=== PATIENT | male | born 1950 | race Caucasian/White ===

== ENCOUNTER 2023-01-27 18:29 | Inpatient (IN) | payer BC, OTHER ==
[2023-01-27] MEDS ORDERED: morphine CARPU-JECT 4 MG/1 ML DISP.SYRIN IVPUSH ONE (18:45)
[2023-01-27] MEDS ORDERED: morphine SULFATE 4 MG/ML VIAL ONE (18:49)
[2023-01-27 19:31] LABS: INR 1.04 (0.83-1.09)
[2023-01-27 19:38] LABS: BILIRUBIN,TOTAL 0.6 mg/dl (0.2-1); CALCIUM 9.1 mg/dl (8.5-10); CREATININE 1.3 mg/dl (0.55-1.3); POTASSIUM 4.4 mmol/L (3.5-5.1); TOT PROT 6.9 g/dl (6.4-8.2)
[2023-01-27] MEDS ORDERED: HYDROmorphone HCl 2 MG/ML VIAL IVPB ONE (20:22)
[2023-01-27] MEDS ORDERED: HYDROmorphone HCl 2 MG/ML VIAL ONE (20:25)
[2023-01-27 21:08] LABS: HEMATOCRIT 42.8 % (35.4-49); HEMOGLOBIN 14.2 GM/dL (11.7-16.9); MCH 29.2 pg (25.7-33.7); MCHC 33.2 g/dl (32.0-35.9); MEAN CELL VOLUME 88.1 fl (80-96); MEAN PLT VOLUME 8.2 fl (7.5-11.1); PLATELET COUNT 317 10^3/uL (134-434); RBC 4.86 M/mm3 (4.00-5.60); RDW 13.4 % (11.9-15.9); WHITE BLOOD COUNT 10.8 K/mm3 (4.0-10.0)
[2023-01-27 22:12] LABS: ANISOCYTOSIS 0; MACROCYTOSIS 0
[2023-01-28] MEDS ORDERED: ACETAMINOPHEN 325 MG TABLET (FP) PO PRN (00:03)
[2023-01-28] MEDS ORDERED: DOCUSATE SODIUM 100 MG CAPSULE (FP) PO PRN (00:08)
[2023-01-28] MEDS ORDERED: DEXTROSE 5%-NORMAL SALINE 1,000 ML IV SCH (00:15)
[2023-01-28] MEDS: ACETAMINOPHEN 1000 MG/100 ML BAG IVPB PRN ×3 (00:39→23:21)
[2023-01-28] MEDS: oxyCODONE HCL 5 MG TABLET PO PRN ×5 (00:44→23:22)
[2023-01-28 01:16] VITALS: BMI 26.0
[2023-01-28 08:28] LABS: CALCIUM 8.2 mg/dl (8.5-10); POTASSIUM 4.2 mmol/L (3.5-5.1)
[2023-01-28] MEDS ORDERED: ONDANSETRON 4 MG/2 ML VIAL IVPUSH PRN (11:58)
[2023-01-29] MEDS: oxyCODONE HCL 5 MG TABLET PO PRN ×2 (06:32→11:38)
[2023-01-29] MEDS: IBUPROFEN 600 MG TABLET (FP) PO SCH ×3 (07:49→19:40)
[2023-01-29] MEDS: ACETAMINOPHEN 500 MG TABLET (FP) PO SCH ×3 (07:50→20:22)
[2023-01-29 08:49] LABS: CALCIUM 8.1 mg/dl (8.5-10); MAGNESIUM 1.9 mg/dL (1.8-2.4); PHOSPHOROUS 2.1 mg/dl (2.5-4.9); POTASSIUM 4.2 mmol/L (3.5-5.1)
[2023-01-29 09:50] LABS: HEMATOCRIT 34.4 % (35.4-49); MCH 30.3 pg (25.7-33.7); MCHC 34.8 g/dl (32.0-35.9); MEAN PLT VOLUME 8.1 fl (7.5-11.1); PLATELET COUNT 221 10^3/uL (134-434); RBC 3.95 M/mm3 (4.00-5.60); RDW 13.3 % (11.9-15.9); WHITE BLOOD COUNT 7.5 K/mm3 (4.0-10.0)
[2023-01-29] MEDS ORDERED: ENOXAPARIN NA (PORCINE) 40 MG/0.4 ML DISP.SYRIN SQ ONE (10:00)
[2023-01-29] MEDS: POLYETHYLENE GLYCOL (HEALTHYLAX) 3350 17 GM PACKET PO SCH (10:11)
[2023-01-29] MEDS: predniSONE 5 MG TABLET (UD) PO SCH (10:11)
[2023-01-30] MEDS: IBUPROFEN 600 MG TABLET (FP) PO SCH (01:21)
[2023-01-30] MEDS: ACETAMINOPHEN 500 MG TABLET (FP) PO SCH ×5 (02:05→21:19)
[2023-01-30 08:07] LABS: CALCIUM 8.3 mg/dl (8.5-10); CREATININE 0.9 mg/dl (0.55-1.3); POTASSIUM 4.1 mmol/L (3.5-5.1)
[2023-01-30 08:10] LABS: INR 1.14 (0.83-1.09); PROTHROMBIN TIME (PATIENT) 13.1 SEC (9.7-13.0)
[2023-01-30 09:08] LABS: BASO % 0.6 % (0-2.0); EOS % 3.5 % (0-4.5); HEMATOCRIT 36.7 % (35.4-49); HEMOGLOBIN 12.9 GM/dL (11.7-16.9); LYMPH % 33.9 % (8-40); MCH 30.3 pg (25.7-33.7); MCHC 35.2 g/dl (32.0-35.9); MEAN CELL VOLUME 86.3 fl (80-96); MEAN PLT VOLUME 8.4 fl (7.5-11.1); MONO % 8.6 % (3.8-10.2); NEUT % 53.4 % (42.8-82.8); PLATELET COUNT 250 10^3/uL (134-434); RBC 4.26 M/mm3 (4.00-5.60); RDW 12.8 % (11.9-15.9); WHITE BLOOD COUNT 6.7 K/mm3 (4.0-10.0)
[2023-01-30] MEDS: predniSONE 5 MG TABLET (UD) PO SCH (09:49)
[2023-01-30] MEDS: POLYETHYLENE GLYCOL (HEALTHYLAX) 3350 17 GM PACKET PO SCH (09:52)
[2023-01-30] MEDS ORDERED: BUPIVACAINE HCL/PF 0.5% (5 MG/ML) 30 ML VIAL IJ ONE (12:04)
[2023-01-30] MEDS ORDERED: MIDAZOLAM HCL 2 MG/2 ML SINGLE DOSE VIAL ONE ×3 (12:04→14:07)
[2023-01-30] MEDS ORDERED: BUPIVACAINE LIPOSOME/PF (EXPAREL) 266 MG/20 ML VIAL ONE (12:06)
[2023-01-30] MEDS ORDERED: PROPOFOL 40 ML ONE (12:48)
[2023-01-30] MEDS ORDERED: PROPOFOL 20 ML ONE ×2 (14:14→15:00)
[2023-01-30] MEDS ORDERED: DEXAMETHASONE SOD PHOSPHATE 4 MG/1 ML VIAL ONE (15:29)
[2023-01-30] MEDS ORDERED: TRANEXAMIC ACID 1000 MG/10 ML VIAL ONE (15:29)
[2023-01-30] MEDS ORDERED: ceFAZolin SODIUM 1 GM VIAL ONE (15:29)
[2023-01-30] MEDS ORDERED: KETOROLAC TROMETHAMINE 30 MG/1 ML VIAL ONE (15:29)
[2023-01-30] MEDS ORDERED: ONDANSETRON 4 MG/2 ML VIAL ONE (15:29)
[2023-01-30] MEDS ORDERED: ACETAMINOPHEN INJECTION 100 ML IVPB ONE (16:08)
[2023-01-30] MEDS ORDERED: ACETAMINOPHEN 1000 MG/100 ML BAG IVPB ONE (16:11)
[2023-01-30] MEDS ORDERED: oxyCODONE HCL 5 MG TABLET PO PRN ×3 (16:11→18:56)
[2023-01-30] MEDS ORDERED: KETOROLAC TROMETHAMINE 30 MG/1 ML VIAL IVPUSH SCH ×2 (16:15→20:30)
[2023-01-30] MEDS ORDERED: LACTATED RINGERS SOLUTION 1,000 ML IV SCH (16:15)
[2023-01-30 16:23] VITALS: RESP 18
[2023-01-30] MEDS ORDERED: ONDANSETRON 4 MG/2 ML VIAL IVPUSH PRN (18:56)
[2023-01-30] MEDS ORDERED: DOCUSATE SODIUM 100 MG CAPSULE (FP) PO PRN (18:56)
[2023-01-30] MEDS: oxyCODONE HCL 10 MG SUSTAINED ACTING TABLET PO SCH (21:17)
[2023-01-31] MEDS: CEFAZOLIN 1 GM in DEXTROSE 5%-WATER - 50 ML IVPB SCH ×2 (00:24→06:47)
[2023-01-31] MEDS: ACETAMINOPHEN 500 MG TABLET (FP) PO SCH ×2 (05:15→09:24)
[2023-01-31] MEDS: oxyCODONE HCL 10 MG SUSTAINED ACTING TABLET PO SCH (09:25)
[2023-01-31 09:30] VITALS: BP 126/68; PULSE 57; TEMP 98.1
[2023-01-31] MEDS ORDERED: predniSONE 5 MG TABLET (UD) PO SCH (10:00)
[2023-01-31] MEDS ORDERED: POLYETHYLENE GLYCOL (HEALTHYLAX) 3350 17 GM PACKET PO SCH (10:00)
[2023-01-31] MEDS ORDERED: ENOXAPARIN NA (PORCINE) 40 MG/0.4 ML DISP.SYRIN SQ SCH (13:00)
== END 2023-01-31 11:26 | disposition home or self-care (01) | DRG 493 ==
LOC: FER 18:29 → FM/S 21:35 → OBSVTOIN 01-29 14:37
PROVIDERS: ADMIT Internal Medicine; ATTEND Internal Medicine
PROC: 0QSJ04Z Reposition Right Fibula with Internal Fixation Device, Open Approach (ICD-10-PCS; 2023-01-30)
PROC: 0QSG04Z Reposition Right Tibia with Internal Fixation Device, Open Approach (ICD-10-PCS; principal; 2023-01-30 12:55)
DX: S82.251A Displaced comminuted fracture of shaft of right tibia, initial encounter for closed fracture (principal); M31.30 Wegener's granulomatosis without renal involvement; S82.491A Other fracture of shaft of right fibula, initial encounter for closed fracture; W18.39XA Other fall on same level, initial encounter; Y93.66 Activity, soccer; Y92.89 Other specified places as the place of occurrence of the external cause
CPT/HCPCS: 36415; 73590-TC-RT-FY; 73610-TC-RT-FY; 73700-TC-RT; 80048; 80053; 83735; 84100; 85025; 85027; 85610; 85730; 86850; 86900; 86901; 93005; 94760; 97116-GP; 97162-GP; 99285-25; C1713; C1725; C9803-CS; G0378; U0003; U0005